=== PATIENT | female | born 1960 | race Caucasian/White ===

== ENCOUNTER → 2016-11-24 | Outpatient (CLI) | payer BC ==
[~2016-11-24] MED LIST: AMOXICILLIN500 MG PO; ASPIRIN (CHILDR81 MG PO; COLACE100 MG PO; CYMBALTA30 MG PO; CYMBALTA60 MG PO; DILAUDID 2MG(HYD2 MG PO; FLUOXETINE HCL60 MG PO; LYRICA150 MG PO; MIRALAX17 GM PO; MOBIC7.5 MG PO; OMEPRAZOLE40 MG PO; PROZAC20 MG PO; TRAZODONE HCL100 MG PO; TYLENOL EXTRA500 MG PO; VALIUM5 MG PO; XARELTO10 MG PO
[2016-11-24 14:18] LABS: INR - (THERAPEUTIC) 0.95 (0.92-1.07)
== END | disposition disaster alternative care site (69) ==
LOC: GPOC 11-22 10:00
PROVIDERS: Otolaryngology
PROC: 0GBG3ZX Excision of Left Thyroid Gland Lobe, Percutaneous Approach, Diagnostic (ICD-10-PCS; principal; 2016-11-24)
DX: E04.2 Nontoxic multinodular goiter (principal)